=== PATIENT | female | born 1950 | race Two or more races ===

== ENCOUNTER → 2017-01-10 | Outpatient (CLI) | payer BC ==
--- NOTE | 2017-01-10 12:50 | RADIOLOGY REPORT (SQ) ---
EXAM DESCRIPTION: CHEST PA/LATERAL COMPLETED DATE/TIME: 01/10/2017 11:51 am REASON FOR STUDY: ACUTE BRONCHITIS, UNSPECIFIED COMPARISON: 10/18/2011 NUMBER OF VIEWS: Two view. TECHNIQUE: Frontal and lateral radiographic views of the chest acquired. LIMITATIONS: None. FINDINGS: LUNGS AND PLEURA: Faint my all interstitial prominence not present on the older chest x-r ay and might reflect inflammatory change particularly viral pneumonia. No focal infiltrates. No ma sses or effusions. MEDIASTINUM AND HILAR STRUCTURES: No masses or contour abnormalities. HEART AND VASCULATURE: Heart normal size. No evidence for failure. BONY STRUCTURES: No acute findings. HARDWARE: None. OTHER: No other significant finding. IMPRESSION: Faint diffuse interstitial change and not present on the older chest x-ray. Final etiol ogy may be a consideration when correlated with clinical information. TECHNICAL DOCUMENTATION: JOB ID: [id number] [employer]- All Rights Reserved
== END ==
LOC: OD 11:06
PROVIDERS: ATTEND Internal Medicine
DX: J20.9 Acute bronchitis, unspecified (principal)
CPT/HCPCS: 71020

== ENCOUNTER 2017-10-28 08:35 | Observation (INO) | payer MEDICARE, OTHER ==
--- NOTE | 2017-10-28 08:50 | ER Document Report ---
ED Cardiac - General Stated Complaint: CHEST PAIN Time Seen by Provider: 10/28/17 08:44 Notes: 67-year-old female patient to the emergency department chief complaint of chest pain. Patient states that she was making her bed this morning. Then over and pulled the bed forward a little bit so that she can talk in the bedspread. Shortly afterwards she developed some pain in the central portion of her chest. The pain persisted. Began to radiate down her left arm. Was in her left shoulder as well. Patient does have a history of hypertension. Never has had any other major issues. Has not been taking her blood pressure medications. Became a little bit anxious and had some nausea. Patient called her son. Son called EMS. EMS gave patient aspirin as well as nitroglycerin. Patient states that after she received the nitro her chest pain became better. Patient followed by Dr. Galeano with family practice. Never has had a stress test. Denies cigarette or tobacco abuse. No significant family history. No recent long trips or travel. Denies any long immobilization. No recent surgeries. Not on hormone replacement therapy. TRAVEL OUTSIDE OF THE [place] IN LAST 30 DAYS: No - HPI Patient complains to provider of: Chest pain Was the onset of pain: Sudden Chest pain location: Substernal Quality of pain: Sharp Chest pain radiation location: Left arm, Left shoulder Severity now: Moderate Severity at worst: Moderate Pain level currently: 1 Chest pain precipitating factors: Physical Exertion Cardiac risk factors: Hypertension Associated symptoms: Nausea/vomiting Relieved by: NTG - Related Data Allergies/Adverse Reactions: Penicillins Allergy (Intermediate, Verified 10/18/11 22:11) Past Medical History - Social History Smoking Status: Never Smoker Cigarette use (# per day): No Frequency of alcohol use: None Drug Abuse: None Lives with: Family Family History: Reviewed & Not Pertinent - Past Medical History Cardiac Medical History: Reports: Hx Hypertension Renal/ Medical History: Reports: Hx Kidney Stones Past Surgical History: Reports: Hx Oral Surgery - Immunizations Hx Diphtheria, Pertussis, Tetanus Vaccination: No Review of Systems - Review of Systems Constitutional: No symptoms reported. denies: Fever, Malaise, Weakness EENT: No symptoms reported. denies: Blurred vision, Double vision, Difficulty swallowing, Throat swelling Cardiovascular: Chest pain. denies: Palpitations, Heart racing Respiratory: No symptoms reported Gastrointestinal: No symptoms reported, Nausea. denies: Abdominal pain, Diarrhea, Vomiting Genitourinary: No symptoms reported. denies: Burning, Dysuria, Discharge Female Genitourinary: No symptoms reported Musculoskeletal: No symptoms reported, Joint pain, Muscle pain. denies: Joint swelling, Muscle stiffness Skin: No symptoms reported Hematologic/Lymphatic: No symptoms reported. denies: Anemia, Blood clots, Easy bleeding, Easy bruising Neurological/Psychological: No symptoms reported. denies: Confusion, Weakness, Numbness Physical Exam - Vital signs Vitals: Pulse Ox 94 10/28/17 08:41 Interpretation: Normal - General General appearance: Appears well, Alert - HEENT Head: Normocephalic, Atraumatic Eyes: Normal Pupils: PERRL - Respiratory Respiratory status: No respiratory distress Chest status: Nontender Breath sounds: Normal Chest palpation: Normal - Cardiovascular Rhythm: Regular Heart sounds: Normal auscultation Murmur: No - Abdominal Inspection: Normal Distension: No distension Bowel sounds: Normal Tenderness: Nontender Organomegaly: No organomegaly - Back Back: Normal, Nontender - Extremities General upper extremity: Normal inspection, Nontender, Normal color, Normal ROM , Normal temperature General lower extremity: Normal inspection, Nontender, Normal color, Normal ROM , Normal temperature, Normal weight bearing. No: Socrates's sign - Neurological Neuro grossly intact: Yes Cognition: Normal Orientation: AAOx4 [place] Coma Scale Eye Opening: Spontaneous Tory Coma Scale Verbal: Oriented [place] Coma Scale Motor: Obeys Commands Tory Coma Scale Total: 15 Speech: Normal Motor strength normal: LUE, RUE, LLE, RLE Sensory: Normal - Psychological Associated symptoms: Normal affect, Normal mood - Skin Skin Temperature: Warm Skin Moisture: Dry Skin Color: Normal Course - Re-evaluation Re-evalutation: 10/28/17 10:01 First of the labs unremarkable. Due to her uncontrolled hypertension, female, 67, left arm pain, chest pain and symptoms relieved with nitro would like to admit her for further testing. - Vital Signs Vital signs: Temp Pulse Resp BP Pulse Ox 76 18 179/98 H 93 10/28/17 09:22 10/28/17 11:00 10/28/17 11:00 10/28/17 11:00 - Laboratory Result Diagrams: 10/28/17 08:48 10/28/17 08:48 Laboratory results interpreted by me: 10/28/17 08:48 Sodium 145.2 H Chloride 109 H Glucose 120 H Creatine Kinase 162 H - EKG Interpretation by Sc EKG shows normal: Sinus rhythm, [place], Intervals, QRS Complexes, ST-T Waves Discharge - Discharge Clinical Impression: Chest pain Qualifiers: Chest pain type: unspecified Qualified Code(s): R07.9 - Chest pain, unspecified Hypertension Qualifiers: Hypertension type: unspecified Qualified Code(s): I10 - Essential (primary) hypertension Disposition: ADMITTED OBSERVATION Admitting Provider: Arielle Boo NP Unit Admitted: Telemetry
[2017-10-28 09:03] LABS: ABSOLUTE EOSINOPHILS # (AUTO) 0.2 10^3/uL (0.0-0.6); ABSOLUTE LYMPHOCYTES (AUTO) 1.8 10^3/uL (0.5-4.7); ABSOLUTE MONOCYTES (AUTO) 0.4 10^3/uL (0.1-1.4); ABSOLUTE NEUT (AUTO) 2.4 10^3/uL (1.7-8.2); BASOPHILS % (AUTO) 0.6 % (0-2); EOSINOPHILS % (AUTO) 3.2 % (0-6); HEMATOCRIT 38.8 % (36.0-47.0); LYMPHOCYTES % (AUTO) 37.8 % (13-45); MEAN CORPUSCULAR HEMOGLOBIN 31.3 pg (27.0-33.4); MEAN CORPUSCULAR HGB CONC 33.4 g/dL (32.0-36.0); MEAN CORPUSCULAR VOLUME 94 fl (80-97); MONOCYTES % (AUTO) 8.9 % (3-13); PLATELET COUNT 229 10^3/uL (150-450); RED BLOOD COUNT 4.15 10^6/uL (3.72-5.28); RED CELL DISTRIBUTION WIDTH 12.9 % (11.5-14.0); SEGMENTED NEUTROPHILS % (AUTO) 49.5 % (42-78); TOTAL CELLS COUNTED % (AUTO) 100 %; WHITE BLOOD COUNT 4.8 10^3/uL (4.0-10.5)
--- NOTE | 2017-10-28 09:12 | RADIOLOGY REPORT (SQ) ---
EXAM DESCRIPTION: CHEST SINGLE VIEW COMPLETED DATE/TIME: 10/28/2017 8:59 am REASON FOR STUDY: cp COMPARISON: 2017. NUMBER OF VIEWS: One view. TECHNIQUE: Single frontal radiographic view of the chest acquired. LIMITATIONS: None. FINDINGS: LUNGS AND PLEURA: No opacities, masses or pneumothorax. No pleural effusion. MEDIASTINUM AND HILAR STRUCTURES: No masses. Contour normal. HEART AND VASCULAR STRUCTURES: Heart normal in size. Normal vasculature. BONES: No acute findings. HARDWARE: None in the chest. OTHER: No other significant finding. IMPRESSION: NO SIGNIFICANT RADIOGRAPHIC FINDING IN THE CHEST. TECHNICAL DOCUMENTATION: JOB ID: [id number] [employer]- All Rights Reserved Reading location - IP/workstation name: [email or web address]
[2017-10-28 09:28] LABS: ALANINE AMINOTRANSFERASE 18 U/L (9-52); ALBUMIN 3.7 g/dL (3.5-5.0); ALKALINE PHOSPHATASE 59 U/L (38-126); ANION GAP 11 (5-19); ASPARTATE AMINO TRANSFERASE 22 U/L (14-36); BILIRUBIN,DIRECT 0.3 mg/dL (0.0-0.4); BILIRUBIN,TOTAL 0.7 mg/dL (0.2-1.3); BLOOD UREA NITROGEN 16 mg/dL (7-20); CALCIUM 9.2 mg/dL (8.4-10.2); CARBON DIOXIDE 25 mmol/L (22-30); CHLORIDE 109 mmol/L (98-107); CREATINE KINASE 162 U/L (30-135); GLUCOSE 120 mg/dL (75-110); POTASSIUM 4.2 mmol/L (3.6-5.0); SODIUM 145.2 mmol/L (137-145); TOTAL PROTEIN 6.8 g/dL (6.3-8.2)
[2017-10-28 09:38] LABS: CREATINE KINASE MB 1.28 ng/mL (<4.55); TROPONIN I 0.013 ng/mL
[2017-10-28] MEDS ORDERED: LOSARTAN POTASSIUM 50 MG TABLET PO ONE (09:43)
[2017-10-28] MEDS ORDERED: HYDRALAZINE HCL INJ/PF 20 MG/1 ML SDV IV PRN (11:54)
[2017-10-28] MEDS ORDERED: AMLODIPINE BESYLATE 5 MG TABLET PO SCH (13:00)
[2017-10-28] MEDS ORDERED: HYDROCHLOROTHIAZIDE 12.5 MG TABLET PO SCH (13:00)
[2017-10-28] MEDS ORDERED: ASPIRIN 325 MG TABLET PO ONE (13:25)
[2017-10-28] MEDS ORDERED: NITROGLYCERIN 0.4 MG/TAB 25 TAB/BOTTLE ONE (13:26)
[2017-10-28] MEDS ORDERED: MORPHINE SULFATE 10 MG/ML INJ IV ONE (13:38)
[2017-10-28] MEDS: NITROGLYCERIN 0.4 MG/TAB 25 TAB/BOTTLE SL PRN ×2 (13:47→14:32)
[2017-10-28] MEDS ORDERED: NITROGLYCERIN/D5W 50 MG/250 ML RTUINJ IV PRN (14:34)
--- NOTE | 2017-10-28 14:37 | PDOC TRANSFER SUMMARY ---
General Admission Date/PCP: 10/28/17 10:23 PETEY BOURGEOIS Admission Date: 10/28/17 Transfer Date: 10/28/17 Accepting Facility: [facility] Accepting Physician: DR. CROFT Resuscitation Status: Full Code - Transfer Medications Home Medications: Ergocalciferol (Vitamin D2) [Vitamin D2] 50,000 unit PO MACE@1000 10/28/17 Hydrochlorothiazide [Hydrodiuril 12.5 mg Tablet] 12.5 mg PO DAILY 10/28/17 Transfer Medications: Current Medications Amlodipine Besylate (Norvasc 5 Mg Tablet) 5 mg PO DAILY@1300 [facility] Stop: 11/27/17 12:59 Last Admin: 10/28/17 12:40 Dose: 5 mg Aspirin (Ecotrin 81 Mg Ec Tablet) 81 mg PO DAILY [facility] Stop: 11/28/17 09:59 Enoxaparin Sodium (Lovenox Inj 30 Mg/0.3 Ml Disp.Syrin) 30 mg SUBCUT DAILY [facility] Stop: 11/28/17 09:59 Hydralazine HCl (Apresoline Inj/Pf 20 Mg/1 Ml Sdv) 10 mg IV Q6HP PRN PRN Reason: Give For Sbp > 170 Stop: 11/27/17 11:53 Last Admin: 10/28/17 12:43 Dose: 10 mg Hydrochlorothiazide (Hydrodiuril 12.5 Mg Tablet) 12.5 mg PO DAILY@1300 [facility] Stop: 11/27/17 12:59 Lansoprazole (Prevacid 15 Mg Odt Tablet) 15 mg PO BID@0600,1700 [facility] Stop: 11/27/17 16:59 Nitroglycerin (Nitrostat 0.4 Mg (1/150 Gr) Tabs 25/Bottle) 1 tab SL Q5MP PRN PRN Reason: FOR CHEST PAIN Stop: 11/27/17 13:23 - Allergies Allergies/Adverse Reactions: Penicillins Allergy (Intermediate, Verified 10/18/11 22:11) - Diet/Activity Discharge Diet: Cardiac Discharge Activity: Activity As Tolerated Hospital Course Hospital Course: 67 Y.O. F With a history of HTN (noncompliant with HCTZ for the last month) presented with chest pain. She states she was moving furniture (duong sized bed ) this morning around 0700. Shortly after she began experiencing midsternal chest pain with 'heaviness' to both arms. This prompted her son to call EMS. En route, the patient received 325mg Aspirin, 0.4mg Nitro SL x 1 and 8mg Zofran. Upon arrival to the ED, her EKG showed NSR, 0.1mm elevation in V2. Troponin 0.013. All other lab work benign. Her initial BP was 181/102, for which she received [place] PO. The patient was admitted to the hospitalist service for chest pain and uncontrolled HTN. She received a dose of 10mg hydralazine IV and 5mg Norvasc PO. At approximately 1300 the patient began complaining of worsening chest pain (5/5) and shortness of breath. Repeat EKG showed S.Tachycardia with T wave inversion in V1-V3. Around this time her 2nd set of cardiac enzymes resulted: Troponin 3.670 CK 353. Hospital Coder, Dr. Hahn, was made aware and suggested transfer to a tertiary facility. [facility] was contacted, Dr. Croft (blending machine operator) graciously accepted the patient. The patient has been given weight based Lovenox (1mg/kg), 2mg Morphine IV and sublingual Nitro 0.4mg x 3. If the patient continues to have chest pain she will be placed on a Nitro gtt. She is currently awaiting transport to [facility]. Physical Exam Vital Signs: Temp Pulse Resp BP Pulse Ox 76 14 109/66 97 10/28/17 09:22 10/28/17 13:46 10/28/17 13:46 10/28/17 13:46 General appearance: PRESENT: no acute distress, thin Eye exam: PRESENT: conjunctiva pink, PERRLA Mouth exam: PRESENT: moist Neck exam: PRESENT: full ROM Respiratory exam: PRESENT: clear to auscultation areli, symmetrical, unlabored Cardiovascular exam: PRESENT: +S1, +S2 Pulses: PRESENT: normal radial pulses, normal dorsalis pedis pul Vascular exam: PRESENT: normal capillary refill GI/Abdominal exam: PRESENT: normal bowel sounds, soft. ABSENT: tenderness Rectal exam: PRESENT: deferred Extremities exam: PRESENT: full ROM Musculoskeletal exam: PRESENT: full ROM Neurological exam: PRESENT: alert, awake, oriented to person, oriented to place , oriented to time, oriented to situation Psychiatric exam: PRESENT: appropriate affect Skin exam: PRESENT: dry, intact, warm Results Laboratory Results: 10/28/17 10/28/17 12:46 12:46 Creatine Kinase 353 H Troponin I 3.670 Impressions: Chest X-Ray 10/28/17 08:44 IMPRESSION: NO SIGNIFICANT RADIOGRAPHIC FINDING IN THE CHEST. Status: Imported from PACS Plan Time Spent: Greater than 30 Minutes - TRANSFER TO [facility]. IF CHEST PAIN CONTINUES, PLACE ON NITRO GTT.
[2017-10-28] MEDS ORDERED: ENOXAPARIN SODIUM INJ 60 MG/0.6 ML DISP.SYRIN SUBCUT SCH (14:45)
[2017-10-28 16:45] VITALS: BP 137/73
[2017-10-28] MEDS ORDERED: LANSOPRAZOLE 15 MG TAB.RAP.DR PO SCH (17:00)
--- NOTE | 2017-10-28 19:52 | PDOC CONSULTATION ---
Consultation Consult Date: 10/28/17 Attending physician:: CHUCKIE SHI Consult reason:: Non-STEMI History of Present Illness Admission Date/PCP: 10/28/17 10:23 PTEEY BOURGEOIS Patient complains of: Chest pain History of Present Illness: GAYLA ORTIZ is a 67 year old female with a history of HTN (noncompliant with HCTZ for the last month) presented with chest pain. She states she was moving furniture (duong sized bed) this morning around 0700. Shortly after she began experiencing midsternal chest pain with 'heaviness' to both arms. This prompted her son to call EMS. En route, the patient received 325mg Aspirin, 0.4mg Nitro SL x 1 and 8mg Zofran. Upon arrival to the ED, her EKG showed NSR, 0.1mm elevation in V2. Troponin 0.013. All other lab work benign. Her initial BP was 181/102, for which she received [place] PO. The patient was admitted to the hospitalist service for chest pain and uncontrolled HTN. She received a dose of 10mg hydralazine IV and 5mg Norvasc PO. At approximately 1300 the patient began complaining of worsening chest pain (5/5) and shortness of breath. Repeat EKG showed S.Tachycardia with T wave inversion in V1-V3. Around this time her 2nd set of cardiac enzymes resulted: Troponin 3.670 CK 353. Software Sales Executive, Dr. Hahn, was made aware and suggested transfer to a tertiary facility. [facility] was contacted, Dr. Croft (criminal justice teacher) graciously accepted the patient. The patient has been given weight based Lovenox (1mg/kg), 2mg Morphine IV and sublingual Nitro 0.4mg x 3. If the patient continues to have chest pain she will be placed on a Nitro gtt. She is currently awaiting transport to [facility]. Patient was seen in the emergency room. Patient actually denied any prior history of myocardial infarction, angina or congestive heart failure. She has been noncompliant with medication. Patient claims that she has to struggle quite a bit to lift and shift the bed. Chest pain started shortly after that physical activity. Patient's EKG was reviewed. Cardiac enzymes are reviewed. It is quite clear based on patient's symptoms, EKG and there troponin I level that patient has sustained a non-STEMI. Patient still having some ongoing mild chest pain. It was felt that in the best interest of patient, patient should be transferred to a tertiary care for a urgent coronary intervention. This was explained to the patient. She is agreeable to this approach. Hospitalist advised to arrange for for the transfer. Case also discussed with the ER physician. Past Medical History Cardiac Medical History: Reports: Hypertension Social History Information Source: Patient Lives with: Family Smoking Status: Never Smoker - Advance Directive Resuscitation Status: Full Code Surrogate healthcare decision maker:: Patient's son is the surrogate decision-maker Family History Family History: Hypertension Parental Family History Reviewed: Yes Children Family History Reviewed: Yes Sibling(s) Family History Reviewed.: Yes Medication/Allergy Home Medications: Ergocalciferol (Vitamin D2) [Vitamin D2] 50,000 unit PO MACE@1000 10/28/17 Hydrochlorothiazide [Hydrodiuril 12.5 mg Tablet] 12.5 mg PO DAILY 10/28/17 Allergies/Adverse Reactions: Penicillins Allergy (Intermediate, Verified 10/18/11 22:11) Review of Systems Review of Systems: Please see history of present illness and past medical history as wall. Constitutional: No fever or chills reported. Head : No recent chronic headaches, recent head injury. Eyes: No recent eye pain, diplopia, redness, discharge, acute visual changes. Ears: No recent chronic ear pain, acute hearing loss, ear discharge. Oral cavity: No recent ulcerations, bleeding, oral cavity discomfort. Neck: No recent acute neck pain reported. Hematologic: No recent easy bruising or bleeding. Lymphatic: No recent lymph node enlargement reported. Cardiovascular system review: See history of present illness. Respiratory system review: No hemoptysis or blood clots in the lungs reported. Mild Shortness of breath on exertion Gastrointestinal system review: Negative for any recent acute hematemesis, melena. Genitourinary system review: No recent acute or chronic hematuria, flank pain, UTI etc. reported. Skin system review: Negative for any recent abnormal bruising, no rash, no pruritus reported. Neurologic: No prior history of strokes, mini strokes, seizure disorder. Psychologic: No history of major psychosis or major depression reported. Musculoskeletal: Minor aches and pains reported. No acute joint swelling reported. Endocrine: No recent polyuria, polydipsia, recent heat or cold intolerance. Physical Exam Vital Signs: Temp Pulse Resp BP Pulse Ox 84 19 137/73 H 98 10/28/17 16:45 10/28/17 16:22 10/28/17 16:45 10/28/17 16:22 Exam: GENERAL: well-nourished and in no acute distress. Alert and oriented x3 HEAD: Atraumatic, normocephalic. EYES: Pupils equal round and reactive to light, extraocular movements intact, sclera anicteric, conjunctiva are normal. ENT: TMs normal, nares patent, oropharynx clear without exudates. Moist mucous membranes. No oral ulcerations or bleeding gums noted NECK: supple without lymphadenopathy. Trachea is central. No cervical or axillary lymphadenopathy noted. Carotids are 2+, JVD WNL LUNGS: Respiration seems nonlabored, no significant accessory muscle action noted. Breath sounds clear to auscultation bilaterally and equal noted. No wheezes rales or rhonchi noted. No significant dullness noted on percussion. CHEST: Palpation of the chest wall shows no significant chest wall tenderness. HEART: [place] [employer] ASSOCIATE, No PSH, 1/6 [place] aortic area, 1/6 lei systolic murmur mitral area, no rubs, no gallops. ABDOMEN: Soft, no significant tenderness appreciated, normoactive bowel sounds. No guarding, no rebound. No rigidity noted . No masses appreciated. EXTREMITIES: Pedal pulses are 1-2+, no calf tenderness noted. No clubbing or cyanosis. negative pedal edema noted NEUROLOGICAL: Focused neurological exam showed no significant neurologic deficit. Normal speech, no focal weakness appreciated. PSYCH: Normal mood, normal affect. Judgment and insight within normal limits. SKIN: No significant ecchymosis, skin is noted to be warm. MUSCULOSKELETAL EXAM: No significant acute joint swelling noted. Results Laboratory Results: 10/28/17 10/28/17 12:46 12:46 Creatine Kinase 353 H Troponin I 3.670 EKG Comments: Initial EKG shows sinus rhythm, no definite acute ST-T wave changes noted. Subsequent EKG shows new T-wave inversion anterior precordial lead, consistent with ischemia in the proper clinical setting. Impressions: Chest X-Ray 10/28/17 08:44 IMPRESSION: NO SIGNIFICANT RADIOGRAPHIC FINDING IN THE CHEST. Assessment & Plan - Diagnosis (1) Chest pain Qualifiers: Chest pain type: unspecified Qualified Code(s): R07.9 - Chest pain, unspecified Is this a current diagnosis for this admission?: Yes (2) Hypertension Qualifiers: Hypertension type: unspecified Qualified Code(s): I10 - Essential (primary ) hypertension Is this a current diagnosis for this admission?: Yes (3) NSTEMI (non-ST elevated myocardial infarction) Is this a current diagnosis for this admission?: Yes - Notes Notes: Non-STEMI: Patient has chest pain, positive troponin I and evolving EKG changes. Patient still having some chest pain. Recommend treating with aspirin and heparin, beta-blockers, good control of blood pressure. Have recommended tertiary care transfer which is being arranged by hospitalist. Chest x-ray reviewed shows no widening of mediastinum. Lung hebert reasonably clear. Hypertension: Recommend treating with IV metoprolol, IV CURRY inhibitor but agree with current measures obtained by the ER physician and hospitalist for control of high blood pressure. Chest pain: Due to acute coronary syndrome. Patient to be treated as such. Patient being transferred for coronary intervention. - Time Time Spent: 30 to 50 Minutes - CODE STATUS was discussed, patient remains full code. Surrogate decision-maker unchanged. Multiple medical problems were addressed. More than 50% of the time spent coordinating care, discussing management plans with involved caregivers. Management plans discussed with involved personnels. Medical decision making was of moderate to high complexity , patient's has multiple comorbidities. Medications reviewed and adjusted accordingly: Yes
--- NOTE | 2017-10-29 03:04 | EKG REPORT ---
SEVERITY:- NORMAL ECG - SINUS RHYTHM : Confirmed by: Majo Arriola MD 29-Oct-2017 03:02:51
--- NOTE | 2017-10-29 03:04 | EKG REPORT ---
SEVERITY:- OTHERWISE NORMAL ECG - SINUS RHYTHM BORDERLINE LEFT AXIS DEVIATION : Confirmed by: Majo Arriola MD 29-Oct-2017 03:02:46
[2017-10-29] MEDS ORDERED: ASPIRIN 81 MG TABLET, ENT COATED PO SCH (10:00)
[2017-10-29] MEDS ORDERED: ENOXAPARIN SODIUM INJ 30 MG/0.3 ML DISP.SYRIN SUBCUT SCH (10:00)
== END 2017-10-28 16:43 | disposition short-term general hospital (02) ==
LOC: ER 08:35 → EH 10:23
PROVIDERS: ADMIT Internal Medicine; ATTEND Internal Medicine
DX: I21.4 Non-ST elevation (NSTEMI) myocardial infarction (principal); R07.89 Other chest pain; I10 Essential (primary) hypertension; Z91.14 Patient's other noncompliance with medication regimen
CPT/HCPCS: 93005 ×2; 99285; 96372; 96374; 96375; 36415; 82553; 82550; 85025; 80053; 84484; 71045; 93010; G0378; A9270 ×2; J0360; J2270; J3490; J1650

== ENCOUNTER 2018-01-09 23:07 | Emergency (ER) | payer MEDICARE, OTHER ==
[2018-01-10] MEDS ORDERED: ONDANSETRON HCL INJ/PF 4 MG/2 ML SDV IV ONE (00:02)
[2018-01-10] MEDS ORDERED: DICYCLOMINE HCL INJ 20 MG/2 ML AMPULE IM ONE (00:02)
[2018-01-10] MEDS ORDERED: NORMAL SALINE 1000 ML 1,000 ML IV ONE (00:02)
[2018-01-10 00:39] LABS: ABSOLUTE BASOPHILS # (AUTO) 0.1 10^3/uL (0.0-0.2); ABSOLUTE EOSINOPHILS # (AUTO) 0.1 10^3/uL (0.0-0.6); ABSOLUTE LYMPHOCYTES (AUTO) 1.7 10^3/uL (0.5-4.7); ABSOLUTE MONOCYTES (AUTO) 0.8 10^3/uL (0.1-1.4); ABSOLUTE NEUT (AUTO) 6.1 10^3/uL (1.7-8.2); BASOPHILS % (AUTO) 0.9 % (0-2); EOSINOPHILS % (AUTO) 1.3 % (0-6); HEMATOCRIT 39.5 % (36.0-47.0); HEMOGLOBIN 13.2 g/dL (12.0-15.5); LYMPHOCYTES % (AUTO) 19.8 % (13-45); MEAN CORPUSCULAR HEMOGLOBIN 31.3 pg (27.0-33.4); MEAN CORPUSCULAR HGB CONC 33.3 g/dL (32.0-36.0); MEAN CORPUSCULAR VOLUME 94 fl (80-97); MONOCYTES % (AUTO) 8.5 % (3-13); PLATELET COUNT 235 10^3/uL (150-450); RED BLOOD COUNT 4.21 10^6/uL (3.72-5.28); RED CELL DISTRIBUTION WIDTH 13.7 % (11.5-14.0); SEGMENTED NEUTROPHILS % (AUTO) 69.5 % (42-78); TOTAL CELLS COUNTED % (AUTO) 100 %; WHITE BLOOD COUNT 8.8 10^3/uL (4.0-10.5)
[2018-01-10 00:51] LABS: APPEARANCE,URINE CLEAR; BILIRUBIN,URINE NEGATIVE (NEGATIVE); CALCIUM OXALATE CRYSTALS,URINE MANY /HPF; COLOR,URINE YELLOW; GLUCOSE, URINE NEGATIVE (NEGATIVE); KETONES,URINE 25 mg/dL (NEGATIVE); LEUKOCYTE ESTERASE,URINE TRACE (NEGATIVE); NITRITE,URINE NEGATIVE (NEGATIVE); PROTEIN,URINE NEGATIVE (NEGATIVE); UROBILINOGEN,URINE NEGATIVE mg/dL (<2.0)
[2018-01-10 00:52] LABS: URINE SPECIFIC GRAVITY 1.023
[2018-01-10 00:58] LABS: ALANINE AMINOTRANSFERASE 22 U/L (9-52); ALBUMIN 4.1 g/dL (3.5-5.0); ALKALINE PHOSPHATASE 62 U/L (38-126); ANION GAP 8 (5-19); ASPARTATE AMINO TRANSFERASE 19 U/L (14-36); BILIRUBIN,DIRECT 0.3 mg/dL (0.0-0.4); BILIRUBIN,TOTAL 0.7 mg/dL (0.2-1.3); BLOOD UREA NITROGEN 21 mg/dL (7-20); CALCIUM 9.6 mg/dL (8.4-10.2); CARBON DIOXIDE 29 mmol/L (22-30); CHLORIDE 106 mmol/L (98-107); GLUCOSE 104 mg/dL (75-110); LIPASE 98.6 U/L (23-300); POTASSIUM 3.7 mmol/L (3.6-5.0); TOTAL PROTEIN 7.2 g/dL (6.3-8.2)
[2018-01-10] MEDS ORDERED: MORPHINE SULFATE 10 MG/ML INJ IV ONE (01:09)
--- NOTE | 2018-01-10 01:30 | ER Document Report ---
ED General - General Chief Complaint: Abdominal Pain Stated Complaint: ABDOMINAL PAIN Time Seen by Provider: 01/09/18 23:56 Notes: Patient is a 67-year-old female presents with complaint of a few days of vomiting and diarrhea and intermittent crampy abdominal pain. Tonight the pain became worse and mostly is epigastric with some intermittent cramping in her lower abdomen. She has been taking some diarrhea medication prescribed by Dr. Bourgeois. She says that the medication did slow down her diarrhea some however she has had increased cramping now. Subjective fevers. No blood or emesis. No blood or stool. She thinks it started after eating a rare hamburger a few days ago. No other complaints at this time. TRAVEL OUTSIDE OF THE [place] IN LAST 30 DAYS: No - Related Data Allergies/Adverse Reactions: Penicillins Allergy (Intermediate, Verified 10/18/11 22:11) Past Medical History - Social History Smoking Status: Never Smoker Frequency of alcohol use: None Drug Abuse: None Family History: Hypertension - Past Medical History Cardiac Medical History: Reports: Hx Hypertension Renal/ Medical History: Reports: Hx Kidney Stones. Denies: Hx Peritoneal Dialysis Past Surgical History: Reports: Hx Oral Surgery - Immunizations Hx Diphtheria, Pertussis, Tetanus Vaccination: No Review of Systems - Review of Systems Notes: My Normal Review Basic REVIEW OF SYSTEMS: CONSTITUTIONAL : Check to fever EENT: Denies eye, ear, throat, or mouth pain or symptoms. Denies nasal or sinus congestion. CARDIOVASCULAR: Denies chest pain. RESPIRATORY: Denies cough, cold, or chest congestion. Denies shortness of breath, difficulty breathing, or wheezing. GASTROINTESTINAL: Abdominal cramping and diarrhea. Vomiting GENITOURINARY: Denies difficulty urinating, painful urination, burning, frequency, or blood in urine. SKIN: Denies rash or skin lesions. NEUROLOGICAL: Denies altered mental status or loss of consciousness. ALL OTHER SYSTEMS REVIEWED AND NEGATIVE. Physical Exam - Vital signs Vitals: Temp Pulse Resp BP Pulse Ox 99.1 F 85 16 129/82 H 98 01/09/18 23:13 01/09/18 23:13 01/09/18 23:13 01/09/18 23:13 01/09/18 23:13 - Notes Notes: General Appearance: Well nourished, alert, cooperative, no acute distress, mild to moderate obvious discomfort. Vitals: reviewed, See vital signs table. Head: no swelling or tenderness to the head Eyes: PERRL, EOMI, Conjuctiva clear Mouth: No decreasd moisture Lungs: No wheezing, No rales, No rhonci, No accessory muscle use, good air exchange bilaterally. Heart: Normal rate, Regular rythm, No murmur, no rub Abdomen: Normal BS, soft, No rigidity, mild epigastric and lower abdominal tenderness palpation, No guarding, no rebound, no abdominal masses, no organomegaly Extremities: strength 5/5 in all extremities, good pulses in all extremities, no swelling or tenderness in the extremities, no edema. Skin: warm, dry, appropriate color, no rash Neuro: speech clear, oriented x 3, normal affect, responds appropriately to questions. Course - Re-evaluation Re-evalutation: 01/10/18 05:43 Patient is feeling much improved after the Phenergan. We have sent patient's stool culture. I will give a culture callback number. I informed her we should call if the culture is positive however if she does not hear anything from us after 2440 hrs. then she should call the culture callback number. Encourage her return to ER immediately if she has fevers, recurrent vomiting, bloody stools, or worsening pain. Patient agrees with plan will be discharged home. Dictation of this chart was performed using voice recognition software; therefore, there may be some unintended grammatical errors. - Vital Signs Vital signs: Temp Pulse Resp BP Pulse Ox 98.4 F 67 18 108/64 97 01/10/18 03:29 01/10/18 03:29 01/10/18 03:29 01/10/18 03:29 01/10/18 03:29 - Laboratory Result Diagrams: 01/10/18 00:26 01/10/18 00:26 Laboratory results interpreted by me: 01/10/18 01/10/18 00:26 00:26 BUN 21 H Est GFR (Non-Af Amer) 55 L Urine Ketones 25 H Urine Blood MODERATE H Ur Leukocyte Esterase TRACE H Discharge - Discharge Clinical Impression: Vomiting and diarrhea Abdominal pain Qualifiers: Abdominal location: unspecified location Qualified Code(s): R10.9 - Unspecified abdominal pain Condition: Good Disposition: HOME, SELF-CARE Additional Instructions: Please take the Phenergan as prescribed. Please be aware that it can cause sleepiness so do not drive after taking this medication. Please follow-up with your doctor in 2-3 days for reevaluation. We have sent her stool for culture. If it is positive for a bacterial source we will call you and make you aware and call you an appropriate prescription for antibiotic. If you do not hear from us after 24 hours please call the culture callback number at [phone]. You can get your results through this number. If your results are positive you should ask the culture nurse to get in contact with the ER physician or follow-up closely with your primary care doctor. Please return to ER immediately if you have recurrent fevers, worsening pain, intractable vomiting, or bloody stools. Prescriptions: Promethazine HCl [Phenergan 25 mg Tablet] 1 tab PO Q6H PRN #20 tablet PRN Reason: Referrals: PETEY BOURGEOIS MD [Primary Care Provider] - 01/12/18
[2018-01-10] MEDS ORDERED: PROMETHAZINE HCL INJ 25 MG/1 ML VIAL IM ONE (01:35)
[2018-01-10 03:48] VITALS: BP 108/64
== END 2018-01-10 03:40 | disposition home or self-care (01) ==
LOC: ER 23:07
DX: R11.10 Vomiting, unspecified (principal); R10.13 Epigastric pain; R10.30 Lower abdominal pain, unspecified; R19.7 Diarrhea, unspecified; Z88.0 Allergy status to penicillin; I10 Essential (primary) hypertension; Z87.442 Personal history of urinary calculi
CPT/HCPCS: 99284; 96372; 96361; 96374; 96375; 36415; 87045; 87205; 83690; 85025; 80053; 81001; J0500; J2270; J2550; J2405; J7030